=== PATIENT | male | born 1975 | race Caucasian/White ===

== ENCOUNTER 2020-11-01 13:05 | Emergency (ER) | payer BC, SELFPAY ==
[2020-11-01 13:25] VITALS: BP 141/94; PULSE 107; RESP 20; TEMP 37.1; O2SAT 98
--- NOTE | 2020-11-01 13:28 | ED.NAVMDI ---
HPI - Nausea/Vomiting/Diarrhea General Chief complaint: Nausea/Vomiting/Diarrhea Stated complaint: Abdomen Pain Time Seen by Provider: 11/01/20 13:28 Source: patient Mode of arrival: ambulatory Limitations: no limitations History of Present Illness HPI Narrative: Mike Lopez is a 45 yo male with HTN, GERD, history of diverticulitis, who [facility] complaining of some right-sided pain that on was a 5-6 out of 10 but today is only 310 he has had diarrhea for the last 2 days but seems to be improving states that he has no nausea no vomiting he has mild right flank pain no change in urination. Patient has a primary care doctor who is out of town for the next week he also has been trying to manage his flank pain the last 2 days at home eating bland food he has not had any alcohol since last weekend he only smokes occasional cigarettes occasionally socially Related Data Home Medications Medication Instructions Recorded Confirmed allopurinol 300 mg PO DAILY 11/01/20 11/01/20 atorvastatin 80 mg PO DAILY 11/01/20 11/01/20 eszopiclone 2 mg PO HS PRN 11/01/20 11/01/20 lisinopril 30 mg PO DAILY 11/01/20 11/01/20 metoprolol tartrate 50 mg PO BID 11/01/20 11/01/20 sildenafil 25 mg PO DAILY 11/01/20 11/01/20 testosterone cypionate 200 mg IM WEEKLY 11/01/20 11/01/20 Allergies Allergy/AdvReac Type Severity Reaction Status Date / Time No Known Allergies Allergy Verified 11/01/20 13:33 Review of Systems Review of Systems: Narrative: CONSTITUTIONAL: Denies fever, chills, sweats. EYES: Denies visual changes, redness, discharge. ENT: Denies rhinorrhea, congestion, sore throat, otalgia. CARDIOVASCULAR: Denies chest pain, palpitations, edema. RESPIRATORY: Denies dyspnea, wheezing, cough GASTROINTESTINAL: Has right-sided upper abdominal pain, no nausea, no vomiting, has diarrhea. GENITOURINARY: Denies dysuria, hematuria, abnormal discharge SKIN: Denies rash or itching. NEUROLOGIC: Denies numbness, or focal weakness. PSYCHIATRIC: Denies anxiety or depression. [facility] Past Medical History Medical History Diverticulitis GERD (gastroesophageal reflux disease) Gout HTN (hypertension) Family History Family History (Updated 11/01/20 @ 13:48 by Chio Rae CNP) Other Hypertension Social History Social History (Updated 11/01/20 @ 13:48 by Chio Rae CNP) Smoking status: Current some day smoker Tobacco type: cigars Comments At time of signature, I agree with nursing past medical, surgical, social and family history. There is no relevant family history pertinent to the presenting complaint. Patient has known hypertension is taking his meds, states that he gets anxious coming to my doctor's office at nighttime as his blood pressure is up Exam Narrative: Exam Narrative: GENERAL: This is a well-nourished, well-developed patient, in mild distress. HEAD: normocephalic, atraumatic. EYES: Sclera clear/white. Vision is grossly intact. EARS: External ears normal. Hearing grossly intact. NOSE: External nose normal without nasal discharge, nares without redness, no rhinorrhea. THROAT: Mucous membranes moist, NECK: Neck supple, non-tender CARDIOVASCULAR: Regular rate and rhythm without murmurs, gallops, or rubs. RESPIRATORY: Clear to auscultation. Breath sounds equal bilaterally. No wheezes, rales, or rhonchi. GASTROINTESTINAL: Abdomen soft, mild CVA tender, RUQ tenderness, epigastric tenderness with deep palpation SKIN: warm, intact with no suspicious lesions or rash, good texture and turgor. NEURO: awake, alert, and oriented to person, place and time. There were no obvious focal neurologic abnormalities. Steady gait EXTREMITIES: Normal range of motion. BACK: Nontender without deformity Course Course Emergency Course: Patient here to discuss improving right-sided tenderness states has had diarrhea for 2 days is getting better abdominal pain is improv
== END 2020-11-01 14:00 | disposition home or self-care (01) ==
PROVIDERS: Emergency Provider Nurse Practitioner
DX: K52.9 Noninfective gastroenteritis and colitis, unspecified (principal); I10 Essential (primary) hypertension; K21.9 Gastro-esophageal reflux disease without esophagitis; M10.9 Gout, unspecified; F17.210 Nicotine dependence, cigarettes, uncomplicated
CPT/HCPCS: 99211; G0463